=== PATIENT | female | born 1970 | race Caucasian/White ===

== ENCOUNTER 2018-02-24 08:58 | Emergency (ER) | payer MEDICAID ==
[2018-02-24] MEDS ORDERED: KETOROLAC 60 MG/2 ML VIAL IM STA (09:56)
[2018-02-24 11:39] VITALS: BP 136/79
--- NOTE | 2018-02-24 11:42 | ED Physician Documentation ---
History of Present Illness - Stated complaint Stated Complaint: R LOWER LEG NUMBNESS/SWELLING - Chief complaint Chief Complaint: Ext Problem - Additonal information Additional information: hx from pt 47 female to ER with pain to R leg posterior calf and tingling to foot hx sciatica but no back pain also a cough for 2 weeks no recent fever Review of Systems Constitutional: denies: Fever, Chills Cardiac: denies: Chest pain / pressure Respiratory: reports: Cough GI: denies: Abdominal Pain : denies: Now EGA (denies) Musculoskeletal: reports: Extremity pain. 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 01/03/15 guaiFENesin/DEXTROMETHORPHAN 10 ml PO Q6H PRN #120 ml 02/24/18 [Robitussin Dm] predniSONE [Deltasone] 40 mg PO DAILY 5 Days #6 tablet 02/24/18 - Allergies Allergies/Adverse Reactions: Allergies Allergy/AdvReac Type Severity Reaction Status Date / Time flu shot Allergy Mild Unknown Uncoded 01/03/15 12:15 - Social History Does the pt smoke?: Yes Smoking Status: Current every day smoker Does the pt drink ETOH?: No Does the pt have substance abuse?: No - Immunizations Immunizations are current?: Yes - POLST Patient has POLST: No PD ED PE NORMAL - Vitals Vital signs reviewed: Yes - Neck Neck: Supple, no meningeal sign - Cardiac Cardiac: RRR - Respiratory Respiratory: No respiratory distress, Other (coarse non focal) - Abdomen Abdomen: Soft, Non tender, Other (no pulsatile mass) - Back Back: No spinal TTP (no redness warmth or swelling) - Derm Derm: Normal color - Extremities Extremities: Other (stongpulses brinsk cap refill). No: No edema (jeremy mild symm edema) - Neuro Neuro: Alert and oriented X 3, Other (hip flex knee ext foot dorsi planta nl, neg SLR, no clonus, tingling to toes per pt) Eye Opening: Spontaneous Results - Vitals Vitals: Vital Signs - 24 hr 02/24/18 02/24/18 09:19 11:38 Temperature 36.7 C Heart Rate 94 70 Respiratory 20 18 Rate Blood Pressure 161/79 H 136/79 H O2 Saturation 100 99 Oxygen O2 Source Room air - Labs Labs: Laboratory Tests 02/24/18 11:26 POC Whole Bld Glucose 93 - Rads (name of study) doppler Radiology: See rad report (no DVT) Departure - Departure Disposition: 01 Home, Self Care Clinical Impression: Cough Sciatica Qualifiers: Laterality: right Qualified Code(s): M54.31 - Sciatica, right side Condition: Good Instructions: ED Sciatica Prescriptions: guaiFENesin/DEXTROMETHORPHAN [Robitussin Dm] 10 ml PO Q6H PRN #120 ml PRN Reason: Cough predniSONE [Deltasone] 40 mg PO DAILY 5 Days #6 tablet Comments: The ultrasound was fine and no blood clot was seen The pain may be from your sciatica The steroids should help relieve the pain in your leg The steroids will also help ease the cough Please follow up with your PMD if not better
--- NOTE | 2018-02-24 12:18 | Ultrasound Report ---
RIGHT LEG VENOUS DUPLEX: 02/24/2018 CLINICAL INDICATION: Pain, swelling. TECHNIQUE: Real-time sonographic vascular imaging was performed by the crown wheel assembler through the right lower extremity utilizing both color flow and Doppler spectral analysis. Multiple cash application representative static images were saved for review. FINDINGS: A right lower extremity venous sonogram is performed revealing the common femoral, superficial femoral, profunda femoris, and popliteal veins to be adequately visualized without intraluminal defects. There is normal venous compression, augmentation, phasicity, and spontaneity of venous flow. In the calf, the visualized more cephalad portions of posterior tibial and peroneal veins are grossly compressible, without filling defects. IMPRESSION: NO EVIDENCE OF DEEP VENOUS THROMBOSIS. TD: 02/24/2018 12:17
== END 2018-02-24 12:10 | disposition home or self-care (01) ==
LOC: ED 08:58
DX: J45.909 Unspecified asthma, uncomplicated (principal); F17.200 Nicotine dependence, unspecified, uncomplicated; M54.31 Sciatica, right side; R05 Cough
CPT/HCPCS: 96372; 99283

== ENCOUNTER 2019-08-16 13:57 | Emergency (ER) | payer MEDICAID ==
[2019-08-16 14:02] VITALS: BP 138/85
--- NOTE | 2019-08-16 15:29 | ED Physician Documentation ---
History of Present Illness - Stated complaint Stated Complaint: LT EAR PX - Chief complaint Chief Complaint: Heent - History obtained from History obtained from: Patient - History of Present Illness Timing: How many weeks ago (1) Pain level max: 6 Pain level now: 5 Improved by: nothing Worsened by: "everything" - Additonal information Additional information: Patient presents the emergency department left ear pain. She states that she was using a Q-tip in her right ear and had placed a Q-tip in the left ear when she turned and feels like it may have punctured her eardrum. This is followed by bleeding. The next day she did the same thing and had more bleeding. This was approximately 1 week ago. She is now having ear pain. No fevers. No current drainage. 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 01/03/15 guaiFENesin/DEXTROMETHORPHAN 10 ml PO Q6H PRN #120 ml 02/24/18 [Robitussin Dm] predniSONE [Deltasone] 40 mg PO DAILY 5 Days #6 tablet 02/24/18 Cephalexin [Keflex] 500 mg PO Q6H #28 capsule 08/16/19 Ciproflox/Dexameth Otic Drops 4 drops OT BID #1 bottle 08/16/19 [Ciprodex] Meloxicam [Mobic] 7.5 mg PO BID PRN #20 tablet 08/16/19 Sulfamethox/Trimeth 800/160 1 each PO BID #14 tablet 08/16/19 [Bactrim Ds 800/160] - Allergies Allergies/Adverse Reactions: Allergies Allergy/AdvReac Type Severity Reaction Status Date / Time flu shot Allergy Mild Unknown Uncoded 01/03/15 12:15 - Social History Does the pt smoke?: Yes Smoking Status: Current every day smoker Does the pt drink ETOH?: No Does the pt have substance abuse?: No - Immunizations Immunizations are current?: Yes - POLST Patient has POLST: No PD ED PE NORMAL - Vitals Vital signs reviewed: Yes - General General: Alert and oriented X 3, No acute distress - HEENT HEENT: Moist mucous membranes, Other (Right ear is normal. Left ear Has dried blood in the canal. Unable to visualize the tympanic membrane. The canal does appear swollen. The pinnae may be slightly swollen as well. No crepitus. No necrotizing infection) - Neck Neck: Supple, no meningeal sign - Derm Derm: Warm and dry - Neuro Neuro: Alert and oriented X 3 - Psych Psych: Normal mood, Normal affect Results - Vitals Vitals: Vital Signs - 24 hr 08/16/19 14:00 Temperature 36.4 C L Heart Rate 76 Respiratory 18 Rate Blood Pressure 138/85 H O2 Saturation 100 Oxygen O2 Source Room air PD MEDICAL DECISION MAKING - ED course Complexity details: considered differential, d/w patient ED course: With a left acute otitis externa. Possible mild cellulitis of the ear as well. Will cover with oral antibiotics and topical antibiotics. Unclear if the tympanic membrane is ruptured or not as this is unable to be visualized secondary to the dried blood in the canal. Therefore we will utilize Ciprodex. Patient counseled regarding signs and symptoms for which I believe and urgent re-evaluation would be necessary. Patient with good understanding of and agreement to plan and is comfortable going home at this time This document was made in part using voice recognition software. While efforts are made to proofread this document, sound alike and grammatical errors may occur. Departure - Departure Disposition: Home, Self Care Clinical Impression: Otitis externa Qualifiers: Otitis externa type: unspecified type Chronicity: acute Laterality: left Qualified Code(s): H60.502 - Unspecified acute noninfective otitis externa, left ear Cellulitis Qualifiers: Site of cellulitis: unspecified site Qualified Code(s): L03.90 - Cellulitis, unspecified Condition: Good Instructions: ED Otitis Externa Follow-Up: your,doctor in 1 week [Other] Prescriptions: Cephalexin [Keflex] 500 mg PO Q6H #28 capsule Ciproflox/Dexameth Otic Drops [Ciprodex] 4 drops OT BID #1 bottle Meloxicam [Mobic] 7.5 mg PO BID PRN #20 tablet PRN Reason: Pain Sulfamethox/Trimeth 800/160 [Bactrim Ds 800/160] 1 each PO BID #14 tablet Comments: Use the medications as prescribed. Return if you worsen. Follow-up with your doctor for further care. Discharge Date/Time: 08/16/19 15:42
== END 2019-08-16 15:42 | disposition home or self-care (01) ==
LOC: ED 13:57
DX: H60.502 Unspecified acute noninfective otitis externa, left ear (principal); H60.12 Cellulitis of left external ear; F17.200 Nicotine dependence, unspecified, uncomplicated
CPT/HCPCS: 99284